=== PATIENT | male | born 1945 | race Caucasian/White ===

== ENCOUNTER → 2017-04-11 | Outpatient (CLI) | payer OTHER | LOC: FIMAGING 13:51 | PROVIDERS: ATTEND Internal Medicine Rheumatology | DX: Z13.820 Encounter for screening for osteoporosis (principal); M85.80 Other specified disorders of bone density and structure, unspecified site; Z79.52 Long term (current) use of systemic steroids ==

== ENCOUNTER → 2017-06-13 | Day surgery (SDC) | payer OTHER ==
[~2017-06-13] MED LIST: MIDAZOLAM 2 MG/2 ML VIAL IVP ONE
[2017-06-13 06:45] VITALS: BP 105/65; PULSE 64; RESP 14; TEMP 97.5; O2SAT 95
--- NOTE | 2017-06-13 06:55 | PDANEPAE ---
ANE Past Medical History - Cardiovascular History Hx Hypertension: Yes Hx Arrhythmias: Yes Hx Chest Pain: No Hx Coronary Artery / Peripheral Vascular Disease: Yes Hx CHF / Valvular Disease: Yes Hx Palpitations: No Cardiovascular History Comment: CARDIOMYOPATHY. VENTRICULAR TACHYCARDIA. S/P ICD. STENTS. mi. chf. ischemic cardiomopathy. - Pulmonary History Hx COPD: Yes Hx Asthma/Reactive Airway Disease: No Hx Recent Upper Respiratory Infection: No Hx Oxygen in Use at Home: Yes O2 in Use at Home (L/minute): 2l at noc Hx Sleep Apnea: No Sleep Apnea Screening Result - Last Documented: Positive Pulmonary History Comment: tres positive uses o2 - Neurologic History Hx Cerebrovascular Accident: No Hx Seizures: No Hx Dementia: No Neurologic History Comment: GABAPENTIN FOR L SIDED CHEST SENSITIVITY. idiopathic neuropathy - Endocrine History Hx Diabetes: No Hypothyroid: No Hyperthyroid: No Obesity: yes, mild - Renal History Hx Renal Disorders: Yes Renal History Comment: BLADDER TUMOR CURRENTLY. SXS STARTED W/ BLD IN URINE IN. JUL 2014. TURBT X 2 08/15, 10/17, 02/03/15. left ureteroscopy 03/01/15 - Liver History Hx Hepatic Disorders: No - Neurological & Psychiatric Hx Hx Neurological and Psychiatric Disorders: No - Cancer History Hx Cancer: Yes Cancer History Comment: BLADDER CANCER. MOHS SURG FACE X2 - Congenital Disorder History Hx Congenital Disorders: No - GI History GERD: no Hx Gastrointestinal Disorders: Yes Gastrointestinal History Comment: GERD. POLYPS. HX HEMORRHOIDECTOMY. NO BEEF , POULTRY OR PORK. LOW FAT DIET - Other Health History Other Health History: IMPLANT DENTAL. BRIDGES PERM. MISSING TEETH. ARTHRITIS - Chronic Pain History Chronic Pain: Yes (BACK PAIN) - Surgical History Prior Surgeries: 08/09/16 Left ureteral stent exchange with Kefer. EGD WITH BERSENTES 12/12/15. ABLATION WITH TORRES 11/29/15. URETERAL STENT CHANGE WITH KEFER 10/18/15. CARDIOVERSION 09/05/15. 07/12/15 CYSTO WITH STENT CHANGE. L URETEROSCOPY. 03/01/15 left ureteroscopy with kefer. TURBT WITH STENT . DEFIBRILLATOR [id number], CHANGED 12-22-14 DEFIB. 2000 3X BYPASS. 2009 CARDIAC STENT X1. HEMORRHOIDECTOMY. CYSTOSCOPY TURBT 2013, 10-21-14 ANE Review of Systems Review of Systems: - Exercise capacity METS (RN): 4 METS - Pacemaker Pacemaker Type: Permanent Pacer/Defib Pacemaker Ground Operations Superintendent: ZettasetroniEquigerminal Pacemaker Model: Ilesto 7 VR-T DX Pacemaker Mode: VVI Pacemaker Set Rate: 30 Date Pacemaker Last Checked: 05/09/17 ANE Patient History - Allergies Allergies/Adverse Reactions: No Allergies [NKA] Allergy (Verified 06/06/17 16:29) - Home Medications Home Medications: Apixaban [Eliquis] 12/12/15 [Last Taken 08/09/16 05:15] Atorvastatin Calcium [Lipitor 40 mg (*)] 12/12/15 [Last Taken 08/08/16 22:00] Carvedilol [Coreg (*)] 12/12/15 [Last Taken 06/13/17 05:10] Enalapril Maleate [Vasotec 2.5 MG (*)] 12/12/15 [Last Taken 08/09/16 05:15] Ezetimibe [Zetia 10 MG (*)] 12/12/15 [Last Taken 08/08/16 22:00] Furosemide [Lasix 20 MG (*)] 12/12/15 [Last Taken 08/08/16 22:00] Gabapentin [Neurontin 100 MG (*)] 12/12/15 [Last Taken 08/09/16 05:15] Potassium Cl [Klor-Con 20 meq (*)] 12/12/15 [Last Taken 08/08/16 22:00] Temazepam [Restoril 15 MG (*)] 12/12/15 [Last Taken 08/08/16 22:00] Finasteride [Proscar 5 MG (*)] 12/14/15 [Last Taken 08/09/16 05:15] Aspirin 01/27/16 [Last Taken 06/06/17] Tamsulosin HCl [Flomax 0.4 MG (*)] 02/08/16 [Last Taken 08/09/16 05:15] Herbals/Supplements -Info Only 08/01/16 [Last Taken 08/02/16] Montelukast Sodium 08/01/16 [Last Taken 08/08/16 22:00] ALENDRONATE SODIUM 06/06/17 [Last Taken Unknown] Breo Ellipta 200-25 Mcg INH 06/06/17 [Last Taken Unknown] predniSONE 06/06/17 [Last Taken Unknown] - NPO status NPO Since - Liquids (Date): 06/12/17 NPO Since - Liquids (Time): 22:00 NPO Since - Solids (Date): 06/12/17 NPO Since - Solids (Time): 22:00 - Anes Hx Anes Hx: no prior problems - Smoking Hx Smoking Status: Former smoker - Alcohol Use Alcohol Use: Occasionally - Family Anes Hx Family Anes Hx: neg - N/A Family Hx Anesthesia Complications: none ANE Labs/Vital Signs - Vital Signs Blood Pressure: 105/65 Heart Rate: 64 Respiratory Rate: 14 O2 Sat (%): 95 Height: 165.1 cm Weight: 87.543 kg ANE Physical Exam - Airway Neck exam: FROM Mallampati Score: Class 2 Mouth exam: normal dental/mouth exam - Pulmonary Pulmonary: no respiratory distress, no rales or rhonchi, clear to auscultation - Cardiovascular Cardiovascular: regular rate and rhythym - ASA Status ASA Status: III ANE Anesthesia Plan Anesthesia Plan: general endotracheal anesthesia
--- NOTE | 2017-06-13 08:34 | CPEKG ---
Heart Rate: 62 RR Interval: 968 P-R Interval: 156 QRSD Interval: 100 QT Interval: 440 QTC Interval: 447 P [place]: 67 QRS [place]: 54 T Wave [place]: -17 EKG Severity - ABNORMAL ECG - EKG Impression: SINUS RHYTHM EKG Impression: INFERIOR INFARCT, AGE INDETERMINATE Electronically Signed By: John Moran 13-Jun-2017 20:28:37
== END | disposition home or self-care (01) ==
LOC: FSGY 06:04
PROVIDERS: ATTEND Urology
DX: N13.9 Obstructive and reflux uropathy, unspecified (principal); Z53.09 Procedure and treatment not carried out because of other contraindication; C67.9 Malignant neoplasm of bladder, unspecified; N40.1 Benign prostatic hyperplasia with lower urinary tract symptoms; R35.0 Frequency of micturition; R39.15 Urgency of urination; I25.5 Ischemic cardiomyopathy; I25.2 Old myocardial infarction; G47.33 Obstructive sleep apnea (adult) (pediatric); I25.10 Atherosclerotic heart disease of native coronary artery without angina pectoris; K21.9 Gastro-esophageal reflux disease without esophagitis; I47.2 Ventricular tachycardia; E78.5 Hyperlipidemia, unspecified; Z87.891 Personal history of nicotine dependence; Z80.52 Family history of malignant neoplasm of bladder; Z79.01 Long term (current) use of anticoagulants; Z82.49 Family history of ischemic heart disease and other diseases of the circulatory system; Z95.810 Presence of automatic (implantable) cardiac defibrillator; Z95.5 Presence of coronary angioplasty implant and graft; Z95.1 Presence of aortocoronary bypass graft
CPT/HCPCS: J2250

== ENCOUNTER 2018-03-10 18:37 | Emergency (ER) | payer OTHER ==
--- NOTE | 2018-03-10 18:53 | EDPHY ---
H & P Time Seen by Provider: 03/10/18 18:52 HPI/ROS: Chief complaint. Abdominal pain HPI. 72-year-old male presents with pressure-type sensation in the upper abdomen today. It is actually now getting better. He has had no nausea vomiting or diarrhea. No radiation to his back. Denies chest pain or shortness of breath. He has had similar symptoms previously and carries a diagnosis of GERD. He has had SI joint pain the past couple weeks and has had chiropractic adjustments with improvement of his SI joint pain. His pain today is not change with movement or position or breathing. There is no change with eating. No fever. ROS Constitutional. no fever/chills, no weakness Eyes. no problems with vision ENT. no sore throat, no nasal drainage Cardiovascular. no chest pain Respiratory. no shortness of breath, no cough Abdominal. Upper abdominal pain without nausea vomiting or diarrhea . no problems urinating MS. no calf pain/swelling, no neck/back pain, no joint pain Skin. no rash Lymph. no swollen glands Neuro. no headache, no dizziness, no difficulty walking or with speech Past Medical/Surgical History: Past medical history is significant for defibrillator, mi x2 with stent, coronary artery bypass graft, V-tach, bladder cancer, ureteral stent, cardioversions, H pylori Social History: , nonsmoker, no alcohol Smoking Status: Former smoker Physical Exam: General Appearance: Alert well-developed male mild distress vital signs stable Eyes: Pupils equal and round no pallor or injection. ENT, Mouth: Mucous membranes are moist. Respiratory: There are no retractions, lungs are clear to auscultation. Cardiovascular: Regular rate and rhythm. Gastrointestinal: Mild tenderness in the epigastrium. No masses. No organomegaly. Normal bowel sounds Neurological: Awake and alert, sensory and motor exams grossly normal. Skin: Warm and dry, no rashes. Musculoskeletal: Neck is supple nontender. Extremities symmetrical, full range of motion. Psychiatric: Patient is oriented X 3, there is no agitation. Constitutional: Initial Vital Signs Temperature (C) 36.8 C 03/10/18 18:44 Heart Rate 80 03/10/18 18:44 Respiratory Rate 16 03/10/18 18:44 Blood Pressure 107/77 03/10/18 18:44 O2 Sat (%) 95 03/10/18 18:44 O2 Delivery Mode Room Air Allergies/Adverse Reactions: No Allergies [NKA] Allergy (Verified 03/10/18 18:43) Home Medications: Medication Instructions Recorded Apixaban [Eliquis] 12/12/15 Atorvastatin Calcium [Lipitor 40 12/12/15 mg (*)] Carvedilol [Coreg (*)] 12/12/15 Enalapril Maleate [Vasotec 2.5 MG 12/12/15 (*)] Ezetimibe [Zetia 10 MG (*)] 12/12/15 Furosemide [Lasix 20 MG (*)] 12/12/15 Gabapentin [Neurontin 100 MG (*)] 12/12/15 Potassium Cl [Klor-Con 20 meq (*)] 12/12/15 Temazepam [Restoril 15 MG (*)] 12/12/15 Finasteride [Proscar 5 MG (*)] 12/14/15 Aspirin 01/27/16 Tamsulosin HCl [Flomax 0.4 MG (*)] 02/08/16 Herbals/Supplements -Info Only 08/01/16 Montelukast Sodium 08/01/16 ALENDRONATE SODIUM 06/06/17 Breo Ellipta 200-25 Mcg INH 06/06/17 predniSONE 06/06/17 Medical Decision Making - Diagnostics EKG Interpretation: EKG interpreted by me shows normal sinus rhythm normal interval and axis. Old inferior [place]. QRS otherwise normal. No significant ST elevation or depression. No arrhythmia. The rate is 67 T-wave inversion in leads 3 and AVF were not present on previous EKG July 2017 Procedures: IV normal saline, monitor GI cocktail ED Course/Re-evaluation: Re-evaluation 7:45 p.m. after GI cocktail patient's symptoms have been completely relieved. Patient has no symptoms now. The patient, his , and I discussed EKG and lab results. We discussed treatment plan including criteria for return importance of follow-up and further evaluation. We discussed some new EKG changes inferiorly but normal troponin. I consulted discussed case with Dr. Taylor on-call for Cardiology Differential Diagnosis: This is likely GERD or stomach irritation. His symptoms have been present all day and he has has a normal troponin. His lipase is normal as I considered pancreatitis as well. His symptoms resolved promptly with GI cocktail. We did do an EKG because of his fairly extensive cardiac history and there is what appears to be a new finding of inverted T-waves inferiorly that have not been present on previous EKGs. This is discussed with chlorinator operator and they will follow up with him tomorrow. The patient at this point feels well and I think can be safely discharged. - Data Points Laboratory Results: Laboratory Results 03/10/18 19:00 03/10/18 19:00 03/10/18 03/10/18 03/10/18 19:21 19:00 19:00 WBC 10.77 10^3/uL H 10^3/uL (3.80-9.50) RBC 4.94 10^6/uL 10^6/uL (4.40-6.38) Hgb 14.7 g/dL g/dL (13.7-17.5) Hct 44.2 % % (40.0-51.0) MCV 89.5 fL fL (81.5-99.8) MCH 29.8 pg pg (27.9-34.1) MCHC 33.3 g/dL g/dL (32.4-36.7) RDW 15.9 % H % (11.5-15.2) Plt Count 208 10^3/uL 10^3/uL (150-400) MPV 11.7 fL fL (8.7-11.7) Neut % (Auto) 80.0 % H % (39.3-74.2) Lymph % (Auto) 11.4 % L % (15.0-45.0) [place] % (Auto) 7.3 % % (4.5-13.0) Eos % (Auto) 0.6 % % (0.6-7.6) Baso % (Auto) 0.2 % L % (0.3-1.7) Nucleat RBC Rel Count 0.0 % % (0.0-0.2) Absolute Neuts (auto) 8.62 10^3/uL H 10^3/uL (1.70-6.50) Absolute Lymphs (auto) 1.23 10^3/uL 10^3/uL (1.00-3.00) Absolute Monos (auto) 0.79 10^3/uL 10^3/uL (0.30-0.80) Absolute Eos (auto) 0.06 10^3/uL 10^3/uL (0.03-0.40) Absolute Basos (auto) 0.02 10^3/uL 10^3/uL (0.02-0.10) Absolute Nucleated RBC 0.00 10^3/uL 10^3/uL (0-0.01) Immature Gran % 0.5 % % (0.0-1.1) Immature Gran # 0.05 10^3/uL 10^3/uL (0.00-0.10) Sodium 134 mEq/L L mEq/L (135-145) Potassium 4.3 mEq/L mEq/L (3.3-5.0) Chloride 103 mEq/L mEq/L (97-110) Carbon Dioxide 26 mEq/l mEq/l (22-31) Anion Gap 5 mEq/L L mEq/L (8-16) BUN 12 mg/dL mg/dL (7-23) Creatinine 0.7 mg/dL mg/dL (0.7-1.3) Estimated GFR > 60 Glucose 100 mg/dL mg/dL (70-100) Calcium 9.3 mg/dL mg/dL (8.5-10.4) Total Bilirubin 1.5 mg/dL H mg/dL (0.1-1.4) Conjugated Bilirubin 0.5 mg/dL mg/dL (0.0-0.5) Unconjugated Bilirubin 1.0 mg/dL mg/dL (0.0-1.1) AST 51 IU/L IU/L (17-59) ALT 43 IU/L IU/L (21-72) Alkaline Phosphatase 104 IU/L IU/L (38-126) POC Troponin I 0.00 ng/mL ng/mL (0.00-0.08) Total Protein 6.8 g/dL g/dL (6.3-8.2) Albumin 4.0 g/dL g/dL (3.5-5.0) Lipase 38 IU/L IU/L (23-300) Medications Given: Discontinued Medications Al Hydroxide/Mg Hydroxide (Maalox Susp) 30 ml PO ONCE ONE Stop: 03/10/18 19:18 Last Admin: 03/10/18 19:20 Dose: 30 ml Lidocaine (Lidocaine 2% Viscous) 15 ml PO ONCE ONE Stop: 03/10/18 19:18 Last Admin: 03/10/18 19:20 Dose: 15 ml Point of Care Test Results: Chemistry 03/10/18 19:21 POC Troponin I 0.00 ng/mL ng/mL (0.00-0.08) Departure - Departure Disposition: Home, Routine, Self-Care Clinical Impression: Abdominal pain Qualifiers: Abdominal location: epigastric Qualified Code(s): R10.13 - Epigastric pain Condition: Good Instructions: Abdominal Pain (ED) Additional Instructions: Continue regular medications. Maalox or Mylanta if needed for discomfort. Return for worsening symptoms including chest discomfort or shortness of breath. You do have some slight EKG changes that were not present previously. We would like for you to call and follow up with Dr. Warren tomorrow. Referrals: Trevor Bowling MD [Primary Care Provider] - As per Instructions Baltazar Warren MD [Medical Doctor] - 1 day without fail
--- NOTE | 2018-03-10 18:57 | CPEKG ---
Heart Rate: 67 RR Interval: 896 P-R Interval: 152 QRSD Interval: 106 QT Interval: 428 QTC Interval: 452 P [place]: 55 QRS [place]: 47 T Wave [place]: -49 EKG Severity - ABNORMAL ECG - EKG Impression: SINUS RHYTHM EKG Impression: MULTIPLE ATRIAL PREMATURE COMPLEXES EKG Impression: INCOMPLETE RIGHT BUNDLE BRANCH BLOCK EKG Impression: INFERIOR INFARCT, AGE INDETERMINATE EKG Impression: CONSIDER ANTERIOR INFARCT Electronically Signed By: Carlos Felipe 10-Mar-2018 19:22:52
[2018-03-10] MEDS ORDERED: LIDOCAINE 2% VISCOUS 15 ML UDCUP PO ONE (19:17)
[2018-03-10] MEDS ORDERED: MAG HYDROX/AL HYDROX/SIMETH 30 ML UDCUP PO ONE (19:17)
[2018-03-10 19:24] LABS: PLATELET COUNT 208 10^3/uL (150-400)
[2018-03-10 20:24] VITALS: BP 134/76
== END 2018-03-10 20:24 | disposition home or self-care (01) ==
DX: R10.13 Epigastric pain (principal); I25.2 Old myocardial infarction; Z79.82 Long term (current) use of aspirin; Z85.51 Personal history of malignant neoplasm of bladder; Z87.891 Personal history of nicotine dependence; Z95.5 Presence of coronary angioplasty implant and graft
CPT/HCPCS: 84484-PO

== ENCOUNTER 2018-05-13 07:16 | Observation (INO) | payer OTHER ==
[2018-05-13] MEDS ORDERED: BUPIVACAINE 0.75% 10 ML SDV ONE (07:23)
[2018-05-13] MEDS ORDERED: LIDOCAINE 1% 300 MG/30 ML SDV ONE (07:23)
[2018-05-13] MEDS ORDERED: ISOPROTERENOL HCL/D5W 0.2 MG/50 ML BAG IV ONE (07:23)
[2018-05-13] MEDS ORDERED: HEPARIN 10,000 UNIT/10 ML MDV (1,000 UNIT/ML) ONE (07:23)
[2018-05-13] MEDS ORDERED: NS 1,000 ML IV ONE (07:27)
[2018-05-13 08:16] LABS: PLATELET COUNT 190 10^3/uL (150-400)
[2018-05-13 08:22] LABS: INR 0.98 (0.83-1.16); PROTIME(PATIENT) 13.2 SEC (12.0-15.0)
--- NOTE | 2018-05-13 08:26 | PDANEPAE ---
ANE Past Medical History - Cardiovascular History Hx Hypertension: Yes Hx Arrhythmias: Yes Hx Chest Pain: No Hx Coronary Artery / Peripheral Vascular Disease: Yes Hx CHF / Valvular Disease: Yes Hx Palpitations: No Cardiovascular History Comment: CARDIOMYOPATHY. VENTRICULAR TACHYCARDIA. S/P ICD. STENTS. mi. chf. ischemic cardiomopathy. - Pulmonary History Hx COPD: Yes Hx Asthma/Reactive Airway Disease: No Hx Recent Upper Respiratory Infection: No Hx Oxygen in Use at Home: Yes Hx Sleep Apnea: No Pulmonary History Comment: tres positive uses o2 - Neurologic History Hx Cerebrovascular Accident: No Hx Seizures: No Hx Dementia: No Neurologic History Comment: GABAPENTIN FOR L SIDED CHEST SENSITIVITY. idiopathic neuropathy - Endocrine History Hx Diabetes: No - Renal History Hx Renal Disorders: Yes Renal History Comment: BLADDER TUMOR CURRENTLY. SXS STARTED W/ BLD IN URINE IN. JUL 2014. TURBT X 2 08/15, 10/17, 02/03/15. left ureteroscopy 03/01/15 - Liver History Hx Hepatic Disorders: No - Neurological & Psychiatric Hx Hx Neurological and Psychiatric Disorders: No - Cancer History Hx Cancer: Yes Cancer History Comment: BLADDER CANCER. MOHS SURG FACE X2 - Congenital Disorder History Hx Congenital Disorders: No - GI History Hx Gastrointestinal Disorders: Yes Gastrointestinal History Comment: GERD. POLYPS. HX HEMORRHOIDECTOMY. NO BEEF , POULTRY OR PORK. LOW FAT DIET - Other Health History Other Health History: IMPLANT DENTAL. BRIDGES PERM. MISSING TEETH. ARTHRITIS - Chronic Pain History Chronic Pain: Yes (BACK PAIN) - Surgical History Prior Surgeries: 08/09/16 Left ureteral stent exchange with Kefer. EGD WITH BERSENTES 12/12/15. ABLATION WITH TORRES 11/29/15. URETERAL STENT CHANGE WITH KEFER 10/18/15. CARDIOVERSION 09/05/15. 07/12/15 CYSTO WITH STENT CHANGE. L URETEROSCOPY. 03/01/15 left ureteroscopy with kefer. TURBT WITH STENT . DEFIBRILLATOR [id number], CHANGED 12-22-14 DEFIB. 2000 3X BYPASS. 2009 CARDIAC STENT X1. HEMORRHOIDECTOMY. CYSTOSCOPY TURBT 2013, 10-21-14 ANE Review of Systems Review of Systems: - Pacemaker Date Pacemaker Last Checked: 05/09/17 ANE Patient History - Allergies Allergies/Adverse Reactions: No Allergies [NKA] Allergy (Verified 05/06/18 15:16) - Home Medications Home Medications: Alendronate Sodium [Fosamax 70 MG (*)] 70 mg PO TU@0700 04/13/18 [Last Taken 03/19] Apixaban [Eliquis] 5 mg PO BID 04/13/18 [Last Taken 04/13/18] Aspirin [Aspirin 81mg (*)] 81 mg PO DAILY 04/13/18 [Last Taken 04/13/18] Atorvastatin Calcium [Lipitor 40 mg (*)] 80 mg PO HS 04/13/18 [Last Taken ] Enalapril Maleate [Vasotec 2.5 MG (*)] 2.5 mg PO BID 04/13/18 [Last Taken ] Ezetimibe [Zetia 10 MG (*)] 10 mg PO DAILY 04/13/18 [Last Taken 04/12/18] Fluticasone/Vilanterol [Breo Ellipta 200-25 Mcg INH] 1 each IH DAILY@09 [Last Taken 04/12/18] Furosemide [Lasix 20 MG (*)] 20 mg PO DAILY 04/13/18 [Last Taken 04/12/18] Gabapentin [Neurontin 100 MG (*)] 100 mg PO TID 04/13/18 [Last Taken 04/13/18] Herbals/Supplements -Info Only 1 ea PO DAILY 04/13/18 [Last Taken 04/12/18] Montelukast Sodium [Singulair 10 mg (*)] 10 mg PO HS 04/13/18 [Last Taken ] Potassium Cl [Klor-Con 20 meq (*)] 20 meq PO DAILY 04/13/18 [Last Taken 04/13/18 ] Potassium Cl [Klor-Con 20 meq (*)] 20 meq PO Q2D@1800 04/13/18 [Last Taken Unknown] Tamsulosin HCl [Flomax 0.4 MG (*)] 0.4 mg PO DAILY 04/13/18 [Last Taken 04/13/18 ] Temazepam [Restoril 15 MG (*)] 45 mg PO HS 04/13/18 [Last Taken 04/11/18] predniSONE 1 mg PO DAILY 04/13/18 [Last Taken 04/13/18] Albuterol [Proventil Inhaler HFA (*)] 1 - 2 puffs IH Q4H PRN 05/06/18 [Last Taken Unknown] Finasteride [Proscar 5 MG (*)] 5 mg PO DAILY 05/06/18 [Last Taken Unknown] Tiotropium Inhaler [Spiriva Handihaler] 18 mcg IH DAILY 05/06/18 [Last Taken Unknown] - Smoking Hx Smoking Status: Former smoker - Family Anes Hx Family Hx Anesthesia Complications: none ANE Labs/Vital Signs - Labs Result Diagrams: 05/13/18 08:00 05/13/18 08:00 - Vital Signs Height: 165 cm Weight: 83.5 kg ANE Physical Exam - Airway Neck exam: decreased ROM, short neck Mallampati Score: Class 2 Mouth exam: normal dental/mouth exam - Pulmonary Pulmonary: no respiratory distress, no rales or rhonchi, reduced air movement - Cardiovascular Cardiovascular: regular rate and rhythym, no murmur, rub, or gallop - ASA Status ASA Status: IV ANE Anesthesia Plan Anesthesia Plan: general endotracheal anesthesia
--- NOTE | 2018-05-13 08:28 | PDGENHP ---
History & Physical Chief Complaint: Palpitations Relevant Physical Exam: s1s2 rrr cta ao3 Cardiorespiratory Assessment: 1:1 VA conduction with tachycardia. If AVNRT will ablate. If VT no ablation
[2018-05-13] MEDS ORDERED: MIDAZOLAM 2 MG/2 ML VIAL ONE (08:31)
[2018-05-13] MEDS ORDERED: fentaNYL 100 MCG/2 ML INJ ONE (08:33)
[2018-05-13] MEDS ORDERED: PROPOFOL/EMULSION 500 MG/50 ML BOTTLE IV ONE (08:33)
--- NOTE | 2018-05-13 08:41 | CPEKG ---
Test Reason : OPEN Blood Pressure : / mmHG Vent. Rate : 068 BPM Atrial Rate : 068 BPM P-R Int : 168 ms QRS Dur : 102 ms QT Int : 413 ms P-R-T Axes : 061 041 -50 degrees QTc Int : 440 ms Sinus rhythm Atrial premature complexes Inferior infarct, old Consider anterolateral infarct Confirmed by Kelechi Taylor ([id number]) on 05/13/2018 8:40:39 AM Referred By: Confirmed By:Kelechi Taylor
[2018-05-13] MEDS ORDERED: SUGAMMADEX SODIUM 200 MG/2 ML VIAL IVP ONE (09:11)
[2018-05-13] MEDS ORDERED: ROCURONIUM 50 MG/5 ML VIAL ONE ×2 (09:11→10:27)
[2018-05-13] MEDS ORDERED: PHENYLEPHRINE 10 MG/ML SDV ONE (09:11)
[2018-05-13] MEDS ORDERED: HYDROCORTISONE 100 MG/2 ML VIAL ONE (10:27)
[2018-05-13] MEDS ORDERED: ONDANSETRON 4 MG/2 ML VIAL ONE (10:27)
--- NOTE | 2018-05-13 11:00 | EPPROC ---
Electrophysiology Procedure Note: ELECTROPHYSIOLOGIC STUDY AND CATHETER MEDIATED ABLATION OF SLOW/FAST AV ABRIL REENTRY TACHYCARDIA PROCEDURES PERFORMED: 01785-86 EP evaluation with RA/RV/LA pace/record, with arrhythmia induction 31113-74 EP evaluation with RA/RV pace record, insert/reposition catheter, with arrhythmia induction 29396 Intracardiac catheter ablation, SVT arrhythmogenic focus 56384 3D mapping Fluoroscopy INDICATION: ATP for 1:1 tachycardia that started with PAC and long AV delay seen on ICD check PROCEDURE: Catheters & Anesthesia: The patient arrived in the Electrophysiology Laboratory in the fasting state. The right clavicular region, right groin, and left groin area were prepped and draped in the usual sterile manner. Anesthesiologist Dr. Flynn administered general anesthesia. Appropriate non-invasive blood pressure, pulse oximetry and end-tidal CO2 monitoring was established. All catheters were placed percutaneously using the modified Seldinger technique , and advanced into position under fluoroscopic guidance. One #7 Hebrew deflectable octapolar electrode catheter was advanced to the His-bundle position via the left femoral vein (2mm spacing). One #7 Hebrew deflectable quadrapolar catheter was advanced to the anteroseptal right ventricle via the right femoral vein. One #7 Hebrew deflectable catheter with 10 pairs of electrodes was placed via the right femoral vein into the coronary sinus. Heparin was given to keep ACT > 250 s. Programmed stimulation was performed from the right atrium, right ventricle and coronary sinus (left atrium). Parahisian pacing demonstrated constant H-A interval with changing V-A intervals and stimulus-A intervals during capture and loss of capture of proximal RBB proving retrograde conduction over AV node. AVNRT was induced easily during infusion of isoproterenol 1-2 mcg/min. Ventricular extrastimuli delivered during tachycardia without altering antegrade His bundle activation did not advance next atrial potential, indicating that the tachycardia was not utilizing an accessory pathway for retrograde conduction. VA interval was -10 ms. Post entrainment of the tachycardia from the ventricle, there was VAHV response. A #8 Hebrew deflectable quadrapolar electrode catheter (2mm-5mm-2mm spacing) with 4 mm tip electrode and sensor for the 3D mapping Carto system was advanced to the right atrium via Mobi sheath. 3 D mapping of the inter-atrial septum and coronary sinus was performed and location of the AV node was marked. RF applications were delivered to the region between the tricuspid annulus and the coronary sinus ostium, at the level of the upper edge of the coronary sinus ostium. Junctional rhythm occurred during all of the RF applications. Programmed stimulation was continued post ablation at baseline and during graded doses of isoproterenol upto 2mcg/min. Sustained AVNRT was not inducible. There were 2 echo beats. The catheters were removed. The long sheath was changed to a short 9 Fr sheath. The patient was transferred to the cardiovascular holding area in stable condition. Vascular access sheaths were removed in the holding area. There were no apparent complications. Results: A. Spontaneous Intervals: Pre ablation SCL 1010 ms AH 60 ms HV 45 ms Post ablation SCL 850 ms AH 60 ms HV 45 ms B. Antegrade AV abril function (decremental pacing) Pre ablation FPERP 440 ms SPERP 430 ms WBB CL 420 ms (AH prolongs to 270 ms) Post ablation FPERP 370 ms WBB CL 360 ms, longest AH 160 ms C. Retrograde AV abril function (decremental pacing) Pre ablation FPERP 410 ms WBB CL 400 ms D. Arrhythmias: Sustained slow/fast AVNRT Cycle length 420 ms, AH interval 360 ms, MORALES interval 60 ms VA interval -15 ms ICD parameters were unchanged at end of procedure. ICD therapies were confirmed to be programmed back on post procedure. CONCLUSIONS 1. 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 ( Slow/fast AVNRT). 2. Successful ablation of the slow AV abril pathway with elimination of 1:1 antegrade conduction over the slow AV abril pathway, all retrograde conduction over the slow AV abril pathway and the inducibility of AVNRT. 3. No complications. Patient Problems: Problems Problem Status Onset Ventricular tachycardia Acute CAD - Coronary arteriosclerosis Active CHF - Systolic heart failure Active Cardiomyopathy associated with another disorder Active Ventricular tachycardia (paroxysmal) Acute Ischemic cardiomyopathy Acute Chest pain Acute Atrial flutter Acute atrial flutter Acute Upper GI bleed Acute AICD discharge Acute V tach Acute
[2018-05-13] MEDS ORDERED: DEXAMETHASONE 4 MG/ML VIAL IVP PRN (11:01)
[2018-05-13] MEDS ORDERED: ALBUTEROL 60 PUFFS/8 GM MDI IH PRN (11:01)
[2018-05-13] MEDS ORDERED: ONDANSETRON 4 MG/2 ML VIAL IVP PRN (11:01)
[2018-05-13] MEDS ORDERED: LR 500 ML IV PRN (11:01)
[2018-05-13] MEDS ORDERED: ALBUTEROL 3 ML DEYVIAL IH PRN (11:01)
[2018-05-13] MEDS ORDERED: NALOXONE HCL 0.4 MG/ML INJ IVP PRN (11:01)
[2018-05-13] MEDS ORDERED: fentaNYL 100 MCG/2 ML INJ IVP PRN (11:01)
--- NOTE | 2018-05-13 11:03 | POSTANESTH ---
Post Anesthetic Evaluation Cardiovascular Status: Normal, Stable, Similar to Pre-Op Cond Respiratory Status: Normal, Stable, Similar to Pre-op Cond. Level of Consciousness/Mental Status: Can Participate in Eval Pain Control: Adequate, Prn Tx Ordered Nausea/Vomiting Control: Adequate, Prn Tx Ordered Complications Possibly Related to Anesthesia: None Noted
[2018-05-13] MEDS: GABAPENTIN 100 MG CAP PO SCH ×2 (16:03→21:09)
[2018-05-13] MEDS: CARVEDILOL 6.25 MG TAB PO SCH (17:23)
[2018-05-13] MEDS ORDERED: POTASSIUM CL 20 MEQ TAB PO SCH (18:00)
[2018-05-13] MEDS ORDERED: TEMAZEPAM 15 MG CAP PO SCH (21:00)
[2018-05-13] MEDS ORDERED: ATORVASTATIN CALCIUM 40 MG TAB PO SCH (21:00)
[2018-05-13] MEDS ORDERED: MONTELUKAST SODIUM 10 MG TAB PO SCH (21:00)
[2018-05-13] MEDS: ENALAPRIL MALEATE 2.5 MG TAB PO SCH (21:07)
[2018-05-13] MEDS: APIXABAN 5 MG TAB PO SCH (21:08)
[2018-05-14 03:56] LABS: PLATELET COUNT 153 10^3/uL (150-400)
[2018-05-14] MEDS ORDERED: predniSONE 1 MG TAB PO SCH (09:00)
[2018-05-14] MEDS ORDERED: FINASTERIDE 5 MG TAB PO SCH (09:00)
[2018-05-14] MEDS ORDERED: Herbals/Supplements -Info Only PO SCH (09:00)
[2018-05-14] MEDS ORDERED: TAMSULOSIN HCL 0.4 MG CAP PO SCH (09:00)
[2018-05-14] MEDS ORDERED: Fluticasone/Vilanterol [Breo Ellipta 200-25 Mcg Inh] 1 EACH IH SCH (09:00)
[2018-05-14] MEDS ORDERED: TIOTROPIUM INHALER 18 MCG/DOSE 5 DOSE/MDI IH SCH (09:00)
[2018-05-14] MEDS ORDERED: EZETIMIBE 10 MG TAB PO SCH (09:00)
[2018-05-14] MEDS ORDERED: FUROSEMIDE 20 MG TAB PO SCH (09:00)
[2018-05-14] MEDS ORDERED: ASPIRIN 81 MG CHEWABLE TAB PO SCH (09:00)
[2018-05-14] MEDS ORDERED: POTASSIUM CL 20 MEQ TAB PO SCH (09:00)
[2018-05-14] MEDS: GABAPENTIN 100 MG CAP PO SCH (10:00)
[2018-05-14] MEDS: ENALAPRIL MALEATE 2.5 MG TAB PO SCH (10:00)
[2018-05-14] MEDS: APIXABAN 5 MG TAB PO SCH (10:00)
[2018-05-14] MEDS: CARVEDILOL 6.25 MG TAB PO SCH (10:00)
--- NOTE | 2018-05-14 10:11 | ECHO ---
[email or web address] [address] [address] Main: [phone] Fax: Transthoracic Echocardiogram Name: MARIO PEOPLES MR#: [id number] Study Date: 05/14/2018 Study Time: 07:33 AM Date of : 1945 Age: 73 year(s) Height: 165.1 cm (65 in.) Weight: 83.46 kg (184 lb.) BSA: 1.91 m2 Gender: Male Examination: Echo Indication: F/U post EP study Image Quality: Contrast: Requested by: John Moran BP: / Heart Rate: Rhythm: Indication: F/U post EP study Procedure Staff Tool And Die Engineer: Awa Lieberman RDCS Reading Physician: Rob Mahmood MD Requesting Provider: Conclusions: Mildly dilated left ventricle. The ejection fraction is estimated to be 40-45 %. LV septal wall is consistent with conduction abnormality. LV basal/mid inferior wall is akinetic.. There is a pacemaker lead noted in the right ventricle. Mild mitral valve regurgitation is present. Moderate to severe tricuspid valve regurgitation. Measurements: Chambers Valvular Assessment AV/MV Valvular Assessment TV/PV Normal Normal Normal Name Value Range Name Value Range Name Value Range Ao Neva (2D): 3.6 cm (1.4 cm-2.6 AV Vmax: 1.05 m/s (1 m/s-1.7 TR Vmax: 2.57 mm/s ( - ) cm) m/s) TR PGmax: 26 mmHg ( - ) IVSd (2D): 0.9 cm (0.6 cm-1.1 AV meanP mmHg ( - ) syst. PAP: 31 mmHg ( - ) cm) MV E Vmax: 0.56 m/s ( - ) LVDd (2D): 6.0 cm (4.2 cm-5.9 MV A Vmax: 0.24 m/s ( - ) cm) MV E/A: 2.33 ( - ) LVDs (2D): 4.7 cm (2.1 cm-4 cm) LVPWd (2D): 1.1 cm (0.6 cm-1 cm) LVOTd 2.2 cm 2.2 cm mm LVEF (BP): 50 % (>=55 %) EF Range: 40-45 % Continued Measurements: Chambers Valvular Assessment AV/MV Valvular Assessment TV/PV Name Value Name Value Name Value LADs: 5.3 cm MV E' Septal: 0.06 m/s CVP (est.): 5 mmHg Patient: MARIO PEOPLES Study Date: 05/14/2018 Page 1 of 2 07:33 AM LADs Lon.2 cm MV E/E' Septal: 9.60 LA Area: 26.5 cm2 MV E/E' Lateral: 7.90 LA Volume: 89 ml LA Volume Index: 46.6 ml/m2 Additional Vessels Name Value Ao Ascendin.4 cm Findings: Left Ventricle: Mildly dilated left ventricle. The ejection fraction is estimated to be 40-45 %. Normal diastolic LV function. LV septal wall is consistent with conduction abnormality. LV basal/mid inferior wall is akinetic.. Right Ventricle: Normal size right ventricle. There is a pacemaker lead noted in the right ventricle. RV free wall not well visualized.. Left Atrium: The left atrium is moderately dilated. Right Atrium: The right atrium is moderately dilated. Mitral Valve: The mitral valve is normal in appearance and function. Mild mitral valve regurgitation is present. Aortic Valve: The aortic valve is normal in appearance and function. The aortic valve is tri-leaflet. Tricuspid Valve: The tricuspid valve is normal in appearance and function. Moderate to severe tricuspid valve regurgitation. The pulmonary artery pressure is normal. Pulmonic Valve: The pulmonic valve is normal in appearance and function. Aorta: The aorta is normal. Pericardium: No pericardial effusion. (No Signature Object) Patient: MARIO PEOPLES Study Date: 05/14/2018 Page 2 of 2 07:33 AM D:_[id number]
[2018-05-14] MEDS ORDERED: PANTOPRAZOLE SODIUM 40 MG TAB PO SCH (10:45)
[2018-05-14 12:06] VITALS: BP 103/67
--- NOTE | 2018-05-14 18:22 | ASDISCHSUM ---
Discharge Information Plan Status:Home with No Needs Medically Cleared to Leave:05/14/2018 Discharge Date:05/14/2018 01:05 PM CM D/C Disposition:Home, Routine, Self-Care ADT D/C Disposition:Home, Routine, Self-Care Projected Discharge Date:05/14/2018 01:05 PM Transportation at D/C: Discharge Delay Reason: Follow-Up Date:05/14/2018 01:05 PM Discharge Slot: Final Diagnosis: Placement Information Patient Contact Information Contact Name:USHA Relationship: Address:[address] [place] City:[place] Alternate Phone: [facility]/Zip Code:[place] [address] Email: Financial Information Financial Class:Medicare Advantage Plans Primary Plan Desc:UNITED MEDICARE ADVANTAGE Primary Plan Number:[id number] Secondary Plan Desc: Secondary Plan Number: Assessment Information LACE LACE Length of stay for Answers: 2 days current admission Acuity / Level of Answers: No Care: Did the patient have an inpatient admission? Comorbidities - select Answers: Any tumor (including all that apply lymphoma or leukemia) Chronic pulmonary disease Congestive heart failure Coronary Artery Disease Opioid dependence / Chronic pain Previous myocardial infarction Other Notes: HTN; GERD # of Emergency department Answers: 1-2 visits in the last 6 months Score: 17 Date Signed: 05/14/2018 11:56 AM Electronically Signed By:Yoly Rosado Intervention Information
--- NOTE | 2018-05-14 19:08 | GDS ---
ADMIT DIAGNOSIS: 1. AV antoni reentrant tachycardia. 2. History of ventricular tachycardia. 3. Dual chamber automated implantable cardioverter defibrillator in-situ. 4. Planned EP study and AV antoni reentrant tachycardia ablation. DISCHARGE DIAGNOSIS: 1. Status post successful AV antoni reentrant tachycardia ablation. 2. Dual chamber automated implantable cardioverter defibrillator in-situ. 3. Ischemic cardiomyopathy. 4. History of ventricular tachycardia. 5. History of atrial flutter. COURSE OF HOSPITALIZATION: This gentleman is well known to Dr. Moran. He was seen in clinic in April 2018 for followup on an ICD shock that he received while at a [employer] On interrogation of the ICD the EGM showed sinus rhythm with PAC and then 1-1 AVNRT versus VT that was treated with shock. Ashok Moran further evaluated this with recommendation for consideration of AVNRT ablation. He was in agr eement with this plan. All risks and benefits of ablation therapy were reviewed with him. He was in agreement to proceed. He was taken to the EP lab by Dr. John Moran on 05/13/2018, where he was able to isolate and successfully complete ablation of AVNRT with no complications. He then went to the [facility] for overnight observation and evaluation where he has done well. His groin sites are intact. Sut ures were removed with no complication. There is minimal ecchymosis at the cath insertion sites. He has been up ambulating. Telemetry shows a paced rhythm. At this time he currently is stable for [facility]. MEDICATIONS: He will go home on Restoril 45 mg at bedtime. Prednisone 1 mg daily, Flomax 0.4 mg jan ly, potassium chloride 20 mEq every 2nd day at 1800. Potassium chloride 20 mEq daily, Singulair 10 mg at bedtime, herbal supplements 1 daily, Neurontin 10 0 mg 3 times a day. Zetia 10 mg daily. Lasix 20 mg daily. Vasotec 10.5 mg twice daily. Fluticason e nasal inhaler 1 each naris daily. Lipitor 80 mg at bedtime, aspirin 81 mg daily. Eliquis 5 mg twi ce daily, Flomax 70 mg on Saturday. Coreg 12.5 mg twice daily. Spiriva 18 mcg inhaled daily, Proscar 5 mg daily, Proventil inhaler 1-2 puffs inhaled every 4 hours as needed. He has no known allergies. PHYSICAL EXAMINATION: VITAL SIGNS: On day of discharge blood pressure 103/67, heart rate 62 and reg ular paced. Occasional premature atrial contraction. HEART: Rate regular. No murmurs, rubs, or gal lops. LUNGS: Sounds are clear to auscultation. No wheezes, rales, or rhonchi. No peripheral edema. Perip heral pulses 2+ bilaterally. Groin sites are intact with no bleeding, induration or pain. Mild ecch ymoses noted at cath insertion sites. Sutures were removed with no complications. TESTING: Electrophysiology study on 05/13/2018, with Dr. John Moran. Indication: ATP for 1:1 tachyc ardia that started with PAC and long AV delay seen on ICD check. AVNRT was induced easily with succe ssful ablation, ICD parameters were unchanged at end of the procedure. CONCLUSION: 1. AV antoni reentrant tachycardia using the slow AV antoni pathway for antegrade conduction and the f ast AV antoni pathway for retrograde conduction (slow/fast AVNRT). 2. Successful ablation of the slow AV antoni pathway with elimination of 1-1 antegrade conduction ove r the slow AV antoni pathway. All retrograde conduction over the slow AV antoni pathway and the induci bility of AVNRT. 3. No complications. Echocardiogram 05/14/2018. Findings: Mild dilated left ventricle with ejection fraction estimated 40 -45 percent. Tricuspid valve with moderate to severe tricuspid valve regurgitation. No pericardial effusion. DISCHARGE PLAN: 1. He will be discharged home today with groin care precautions, both written and verbally reviewed with him. 2. For 7 days, no heavy lifting, pushing, pulling greater than 10 pounds. No sitting in a tub of wa ter for 7 days. Okay to shower. 3. Keep groin site clean with soap and water. No ointments. 4. Keep bowels soft to avoid bearing down. Okay to use stool softener if needed. 5. Should groin site bleed, hold firm pressure and go to the emergency room. 6. Okay to use stairways slowly. 7. Okay to go for short walks. No aggressive exercise for 2 weeks. 8. Follow up with Dr. Moran on 06/12/2018, at 10:45 a.m. 9. Call the office for questions, concerns, and ask for Dr. Moran's RN, Martha or Verónica. [facility] phone number provided. 10. At this time, he currently is stable for discharge. /[id number]/MODL
--- NOTE | 2018-05-15 08:38 | CPEKG ---
Test Reason : OPEN Blood Pressure : / mmHG Vent. Rate : 058 BPM Atrial Rate : 105 BPM P-R Int : 159 ms QRS Dur : 107 ms QT Int : 417 ms P-R-T Axes : 063 062 -30 degrees QTc Int : 410 ms Sinus rhythm Atrial premature complex Inferior infarct, age indeterminate Confirmed by Kelechi Taylor ([id number]) on 05/15/2018 8:37:36 AM Referred By: Confirmed By:Kelechi Tyalor
--- NOTE | 2018-05-15 08:39 | CPEKG ---
Test Reason : OPEN Blood Pressure : / mmHG Vent. Rate : 059 BPM Atrial Rate : 000 BPM P-R Int : 157 ms QRS Dur : 105 ms QT Int : 446 ms P-R-T Axes : 061 040 -06 degrees QTc Int : 442 ms Sinus rhythm Atrial premature complex Inferior infarct, old Confirmed by Kelechi Taylor ([id number]) on 05/15/2018 8:39:10 AM Referred By: Confirmed By:Kelechi Taylor
[2018-05-20] MEDS ORDERED: ALENDRONATE SODIUM 70 MG TAB PO SCH (07:00)
== END 2018-05-14 13:05 | disposition home or self-care (01) ==
LOC: FCATH 07:16 → F2W 11:00
PROVIDERS: ADMIT Internal Medicine Cardiovascular Disease; ATTEND Internal Medicine Cardiovascular Disease
PROC: 4A023FZ Measurement of Cardiac Rhythm, Percutaneous Approach (ICD-10-PCS; principal; 2018-05-13)
PROC: 02K83ZZ Map Conduction Mechanism, Percutaneous Approach (ICD-10-PCS; principal; 2018-05-13)
PROC: 3E053KZ Introduction of Other Diagnostic Substance into Peripheral Artery, Percutaneous Approach (ICD-10-PCS; principal; 2018-05-13)
PROC: 02583ZZ Destruction of Conduction Mechanism, Percutaneous Approach (ICD-10-PCS; principal; 2018-05-13)
DX: I47.1 Supraventricular tachycardia (principal); Z95.810 Presence of automatic (implantable) cardiac defibrillator; I25.10 Atherosclerotic heart disease of native coronary artery without angina pectoris; J44.9 Chronic obstructive pulmonary disease, unspecified; M35.3 Polymyalgia rheumatica; Z95.5 Presence of coronary angioplasty implant and graft; Z87.440 Personal history of urinary (tract) infections; Z85.51 Personal history of malignant neoplasm of bladder; Z95.1 Presence of aortocoronary bypass graft
CPT/HCPCS: 93005; 93306; 93613; 93621; 93623; 93653; C1731; C1732; C1766; G0378; J1644; J1720; J2250; J2370; J2405; J2704; J3010; J7512

== ENCOUNTER → 2018-07-17 | Outpatient (CLI) | payer OTHER | LOC: FIMAGING 12:54 | PROVIDERS: ATTEND Internal Medicine | DX: M25.552 Pain in left hip (principal); M25.551 Pain in right hip; M76.891 Other specified enthesopathies of right lower limb, excluding foot; M76.892 Other specified enthesopathies of left lower limb, excluding foot ==

== ENCOUNTER → 2018-10-14 | Outpatient (CLI) | payer OTHER | LOC: FIMAGING 11:45 | PROVIDERS: ATTEND Internal Medicine | DX: M79.641 Pain in right hand (principal) ==

== ENCOUNTER 2018-11-03 07:08 | Day surgery (SDC) | payer OTHER ==
[2018-11-03] MEDS ORDERED: ceFAZolin 2 GM/DEXTROSE 100 ML IV ONE (07:55)
[2018-11-03] MEDS ORDERED: LR 1,000 ML IV ONE (07:56)
[2018-11-03] MEDS ORDERED: ROCURONIUM 50 MG/5 ML VIAL ONE (07:58)
[2018-11-03] MEDS ORDERED: fentaNYL 100 MCG/2 ML INJ ONE (07:58)
[2018-11-03] MEDS ORDERED: LIDOCAINE 2% 5 ML SDV ONE (07:58)
[2018-11-03] MEDS ORDERED: ONDANSETRON 4 MG/2 ML VIAL ONE (07:58)
[2018-11-03] MEDS ORDERED: SUGAMMADEX SODIUM 200 MG/2 ML VIAL IVP ONE (07:58)
[2018-11-03] MEDS ORDERED: DEXAMETHASONE 4 MG/ML VIAL ONE (07:58)
[2018-11-03] MEDS ORDERED: PROPOFOL 200 MG/20 ML VIAL ONE (07:59)
--- NOTE | 2018-11-03 08:07 | PDHPUP ---
History & Physical Update H&P update statement: This history and physical update is based on an assessment of the patient which was completed after admission or registration (within 24 hours), but prior to the surgery/procedure. H&P update: H&P reviewed & patient examined, no change in patient's condition since H&P completed
[2018-11-03] MEDS ORDERED: BUPIVACAINE 0.5% 30 ML SDV ONE (08:30)
--- NOTE | 2018-11-03 08:30 | POSTOPPROG ---
Post Op Note Date of Operation: 11/05/18 Surgeon: Shakila Rodriguez Welder Setter Resistance Machine: Shakila Rodriguez Anesthesiologist: Adryan Bateman Anesthesia: GET(General Endotracheal) Pre-op Diagnosis: RIH, probable bilateral Post-op Diagnosis: BIH Procedure: laparoscopic BIH repairs Findings: R>L bilateral direct defects Inf/Abcess present in the surg proc area at time of surgery?: No EBL: Minimal Complications: none
--- NOTE | 2018-11-03 08:55 | PDANEPAE ---
ANE Past Medical History - Cardiovascular History Hx Hypertension: Yes Hx Arrhythmias: Yes Hx Chest Pain: No Hx Coronary Artery / Peripheral Vascular Disease: Yes Hx CHF / Valvular Disease: Yes Hx Palpitations: No Cardiovascular History Comment: AICD. CABG x3v 2000. a flutter. CAD with stent 2009. cardiomyopathy. Ablation in May with no arrythmias since ablation. hyperlipidemia. htn. CHF. ischemic cardiomyopathy. [facility] [employer]. Great exercize tolerance. Plays vigourous Screen Tonic ball - Pulmonary History Hx COPD: Yes Hx Asthma/Reactive Airway Disease: No Hx Recent Upper Respiratory Infection: No Hx Oxygen in Use at Home: Yes O2 in Use at Home (L/minute): 2L at [facility] Hx Sleep Apnea: No Sleep Apnea Screening Result - Last Documented: Positive Pulmonary History Comment: tres positive uses 2L at [facility] - Neurologic History Hx Cerebrovascular Accident: No Hx Seizures: No Hx Dementia: No Neurologic History Comment: headaches. idiopathic neuropathy - Endocrine History Hx Diabetes: No - Renal History Hx Renal Disorders: Yes Renal History Comment: BPH. multiple bladder surgeries with Melida. hx of bladder CA - Liver History Hx Hepatic Disorders: No - Neurological & Psychiatric Hx Hx Neurological and Psychiatric Disorders: No - Cancer History Hx Cancer: Yes Cancer History Comment: BLADDER CANCER. MOHS SURG FACE X2 - Congenital Disorder History Hx Congenital Disorders: No - GI History Hx Gastrointestinal Disorders: Yes Gastrointestinal History Comment: constipation following surgeries. GERD. POLYPS - Other Health History Other Health History: IMPLANT DENTAL. BRIDGES PERM. MISSING TEETH. ARTHRITIS. wears glasses. polymyalgia rheumatica - Chronic Pain History Chronic Pain: Yes (BACK PAIN) - Surgical History Prior Surgeries: 10/17/18 cystoscopy in Melida's office. 05/13/18 EP study with Luisa. 08/09/16 left ureteral stent exchange with Kefer. 02/08/16 cystoscopy, ureteral stent exchange with Kefer. 12/12/15 EGD with Bersentes. 11/29/15 cardiac ablation with Luisa. 10/18/15 ureteral stent exchange with Kefer. CV, DANICA with Kelvin. 07/12/15, 04/14/15, 03/01/15- cystoscopy, left ureteral stent exchange with Kefer. 02/03/15, 10/21/14, 08/09/14 -TURBT with Kefer. 12/22/14 ICD generator exchange with Luisa. 02/27/11 EUA, hemorrhoidectomy with Mccurdy. 11/15/09 ICD placed with Luisa. 07/12/15 CYSTO WITH STENT CHANGE. 04/14/15 L URETEROSCOPY. 03/01/15 left ureteroscopy with melida. 2000 3X BYPASS. 2009 CARDIAC STENT X1 ANE Review of Systems Review of Systems: - Exercise capacity METS (RN): 3 METS - Pacemaker Pacemaker Type: Permanent Pacer/Defib Pacemaker Sales Office Administrator: [employer] Pacemaker Model: ilesto 7 VR-T DX Pacemaker Mode: VVI Pacemaker Set Rate: 40 Date Pacemaker Last Checked: 09/05/18 ANE Patient History - Allergies Allergies/Adverse Reactions: No Allergies [NKA] Allergy (Verified 10/31/18 16:22) - Home Medications Home Medications: Alendronate Sodium [Fosamax 70 MG (*)] 04/13/18 [Last Taken 11/03/18] Apixaban [Eliquis] BID 04/13/18 [Last Taken 11/01/18] Aspirin [Aspirin 81mg (*)] 04/13/18 [Last Taken 10/31/18] Atorvastatin Calcium [Lipitor 40 mg (*)] 04/13/18 [Last Taken 11/02/18] Enalapril Maleate [Vasotec 2.5 MG (*)] BID 04/13/18 [Last Taken 11/03/18] Ezetimibe [Zetia 10 MG (*)] 04/13/18 [Last Taken 11/02/18] Fluticasone/Vilanterol [Breo Ellipta 200-25 Mcg INH] 04/13/18 [Last Taken 11/03] Furosemide [Lasix 20 MG (*)] 04/13/18 [Last Taken 11/02/18] Gabapentin [Neurontin 100 MG (*)] TID 04/13/18 [Last Taken 11/03/18] Herbals/Supplements -Info Only 04/13/18 [Last Taken 11/02/18] Montelukast Sodium [Singulair 10 mg (*)] HS 04/13/18 [Last Taken 11/02/18] Potassium Cl [Klor-Con 20 meq (*)] 04/13/18 [Last Taken 11/03/18] Tamsulosin HCl [Flomax 0.4 MG (*)] 04/13/18 [Last Taken 11/03/18] Temazepam [Restoril 15 MG (*)] HS 04/13/18 [Last Taken 11/02/18] predniSONE 04/13/18 [Last Taken 11/03/18] Albuterol [Proventil Inhaler HFA (*)] PRN 05/06/18 [Last Taken Unknown] Finasteride [Proscar 5 MG (*)] 05/06/18 [Last Taken 11/03/18] Tiotropium Inhaler [Spiriva Handihaler] DAILY 05/06/18 [Last Taken 11/02/18] Carvedilol [Coreg (*)] BID 10/31/18 [Last Taken 11/03/18] - NPO status NPO Since - Liquids (Date): 11/03/18 NPO Since - Liquids (Time): 06:00 NPO Since - Solids (Date): 11/02/18 NPO Since - Solids (Time): 21:00 - Smoking Hx Smoking Status: Former smoker - Family Anes Hx Family Hx Anesthesia Complications: none ANE Labs/Vital Signs - Labs Result Diagrams: 11/03/18 08:14 11/03/18 08:14 - Vital Signs Blood Pressure: 121/74 Heart Rate: 64 Respiratory Rate: 16 O2 Sat (%): 94 Height: 165 cm Weight: 83.461 kg ANE Physical Exam - Airway Neck exam: FROM Mallampati Score: Class 2 Mouth exam: normal dental/mouth exam - Pulmonary Pulmonary: no respiratory distress, no rales or rhonchi, clear to auscultation - Cardiovascular Cardiovascular: regular rate and rhythym, no murmur, rub, or gallop - ASA Status ASA Status: III ANE Anesthesia Plan Anesthesia Plan: general endotracheal anesthesia
[2018-11-03] MEDS ORDERED: METOCLOPRAMIDE 10 MG/2 ML VIAL IVP PRN (09:21)
[2018-11-03] MEDS ORDERED: oxyCODONE IR 5 MG TAB PO PRN (09:21)
[2018-11-03] MEDS ORDERED: HYDROmorphONE/DILAUDID 2 MG/ML INJ IVP PRN (09:21)
[2018-11-03] MEDS ORDERED: PROMETHAZINE HCL 25 MG/ML INJ IVP PRN (09:21)
[2018-11-03] MEDS ORDERED: fentaNYL 100 MCG/2 ML INJ IVP PRN (09:21)
[2018-11-03] MEDS ORDERED: NALOXONE HCL 0.4 MG/ML INJ IVP PRN (09:21)
[2018-11-03] MEDS ORDERED: PHENYLEPHRINE HCL 100 MCG/ML SYR IVP PRN (09:21)
[2018-11-03] MEDS ORDERED: ONDANSETRON 4 MG/2 ML VIAL IVP PRN (09:21)
[2018-11-03] MEDS ORDERED: MEPERIDINE 25 MG/0.5 ML AMP IVP PRN (09:21)
[2018-11-03] MEDS ORDERED: ePHEDrine SULFATE 25 MG/5 ML SYR ONE (09:23)
--- NOTE | 2018-11-03 09:27 | POSTANESTH ---
Post Anesthetic Evaluation Cardiovascular Status: Normal, Stable Respiratory Status: Normal, Stable Level of Consciousness/Mental Status: Can Participate in Eval Pain Control: Adequate, Prn Tx Ordered Nausea/Vomiting Control: Adequate, Prn Tx Ordered Complications Possibly Related to Anesthesia: None Noted
[2018-11-03] MEDS ORDERED: oxyCODONE IR 5 MG TAB ONE (11:05)
[2018-11-03 13:23] VITALS: BP 127/72
--- NOTE | 2018-11-04 15:13 | GOP ---
[f rep st] OPERATIVE REPORT DATE OF OPERATION: 11/03/2018 SURGEON: Baltazar Mccurdy MD [employer] ASSISTANT: Shakila Rodriguez, ARLENE. PREOPERATIVE DIAGNOSIS: Probable bilateral inguinal hernias. POSTOPERATIVE DIAGNOSIS: Probable bilateral inguinal hernias. PROCEDURE PERFORMED: Laparoscopic bilateral hernia repairs with mesh. FINDINGS: Patient was found have bilateral direct defects, greater on the right than the left. DESCRIPTION OF PROCEDURE: The patient was taken to the operating room where he received a satisfacto ry general endotracheal anesthesia by . He was placed in supine position, prepped and dr aped in the usual sterile fashion. An infraumbilical incision was made. Dissection extended down to the rectus sheath which was incised. A subfascial tunnel was developed. Preperitoneal space was di ssected free with a balloon dissector which was replaced with CO2 insufflation trocar. 2 other troca rs placed a midline under direct vision. Deny ligament was exposed bilaterally. The cords were mo bilized bilaterally. Peritoneum dissected off the cord structures. There were no indirect sacs. Bi lateral direct defects were reduced. The contents were freed up. The fascial edges were well identi fied. Bilateral Covidien polyester mesh patches were placed over the floor of the inguinal canal and anchored in place with AbsorbaTack, securing them to Deny's ligament, the lacunar ligament, the an terior abdominal wall, and the lateral abdominal wall outside the internal ring. Hemostasis was assu red. Trocars were removed under direct vision. Pneumopreperitoneum was released. Trocar sites were closed with 0 Vicryl for the fascia, 4-0 Monocryl subcuticular stitch for the skin. All layers infi ltrated with % Marcaine. Blood loss was negligible. He was taken to the recovery room in good condition. No complications. /[id number]/MODL
== END 2018-11-03 13:00 | disposition home or self-care (01) ==
LOC: FSGY 07:08
PROVIDERS: ATTEND Surgery
PROC: 0YUA4JZ Supplement Bilateral Inguinal Region with Synthetic Substitute, Percutaneous Endoscopic Approach (ICD-10-PCS; principal; 2018-11-03 08:45)
DX: K40.10 Bilateral inguinal hernia, with gangrene, not specified as recurrent (principal); I25.5 Ischemic cardiomyopathy; I25.10 Atherosclerotic heart disease of native coronary artery without angina pectoris; I48.91 Unspecified atrial fibrillation; G47.33 Obstructive sleep apnea (adult) (pediatric); E78.00 Pure hypercholesterolemia, unspecified; E78.5 Hyperlipidemia, unspecified; Z95.5 Presence of coronary angioplasty implant and graft; Z85.51 Personal history of malignant neoplasm of bladder
CPT/HCPCS: C1727; C1781; J0690; J1100; J2405; J2704; J3010

== ENCOUNTER → 2018-11-14 | Outpatient (CLI) | payer OTHER ==
[~2018-11-14] MED LIST changes: +IOPAMIDOL (ISOVUE-300) 100 ML BTL ONE; -MIDAZOLAM 2 MG/2 ML VIAL IVP ONE
== END ==
LOC: FIMAGING 15:48
PROVIDERS: ATTEND Surgery
DX: R10.31 Right lower quadrant pain (principal); K80.20 Calculus of gallbladder without cholecystitis without obstruction; Z79.899 Other long term (current) drug therapy; Z96.0 Presence of urogenital implants
CPT/HCPCS: 74177; Q9967